=== PATIENT | male | born 1965 | race African-American/Black ===

== ENCOUNTER 2016-10-10 21:21 | Inpatient (IN) | payer BC, OTHER ==
--- NOTE | ~2016-10-10 | OP ---
Record Of Operation [facility] [address] [place]. [address] NAME: ADAMA RAO : 61 STATUS : ADM IN [facility]#: [id number] AGE: 51 ADM/REG DATE : 10/10/16 MR#: [id number] REPORT SERV DATE: 10/12/16 DICTATED BY: DEJAN HARDEN JR. DATE: 10/11/16 REPORT STATUS : Draft TRANSCRIBED BY: MODL DATE: 10/11/16 DATE OF PROCEDURE: 10/11/2016 PREOPERATIVE DIAGNOSES: Pneumonia, right parapneumonic effusion verus empyema, sepsis, EtOH abuse, cirrhosis, anemia of chronic disease, chronic kidney disease stage. POSTOPERATIVE DIAGNOSES: Pneumonia, right parapneumonic effusion versus empyema, sepsis, EtOH abuse, cirrhosis, anemia of chronic disease, chronic kidney disease stage. NAME OF OPERATION: Bronchoscopy, right thoracoscopy with complete decortication, intercostal nerve block. SURGEON: Dejan Harden M.D. RESIDENT SURGEON: Bob Purdy MD. VENDOR RELATIONSHIP MANAGER: Henrique Street. ANESTHESIA: General tracheal. FINDINGS: The patient noted to have a loculated complex parapneumonic effusion or empyema. The fluid was sent for cultures. The lung was trapped. We were able to get good reexpansion of all three lobes at the end of the case. The patient returned back to the ICU intubated. DETAILS OF OPERATION: After adequate general anesthesia, the patient was intubated. Bronchoscopy was noted to have no endobronchial lesions. There are mucous secretions and fibrin debris compatible with his pneumonia. This was suctioned out. He was then positioned in the left lateral decubitus position. The right chest was prepped and draped in routine sterile fashion. A small incision made overlying the lower intercostal space. Through the single trocar incision site, the above findings noted. The chest was entered where the fluid was evacuated. The loculations were broken up. The gelatinous material was suctioned out with a large bore open-ended suction. The pleural debris was then evacuated with multiple instruments and suction. We then had to remove the peel from the lung tissue. All the fissures were opened up. We were able get the lung reasonably decorticated such that had good re-expansion of all three lobes. Multiple liters of normal saline solution was used to irrigate the chest cavity. Two straight 32-Mohawk chest tubes were placed. The lung was reinflated. The single trocar sites were closed with running Vicryl sutures. The skin was closed with running monofilament suture. A Dermabond dressing was applied. The procedure was terminated at this point. The two previous chest tube incision sites from the outside referring facility were opened up and debrided. They were packed with iodoform gauze and closed with interrupted monofilament sutures. Sterile dressings were applied. The procedure was terminated. The patient tolerated the procedure well and taken back to recovery room in stable condition. Record Of Operation [facility] [address] [place]. [address] NAME: ADAMA RAO : 61 STATUS : ADM IN [facility]#: [id number] AGE: 51 ADM/REG DATE : 10/10/16 MR#: [id number] REPORT SERV DATE: 10/12/16 DICTATED BY: DEJAN HARDEN JR. DATE: 10/11/16 REPORT STATUS : Draft TRANSCRIBED BY: BEST DATE: 10/11/16 COOPER/BEST Dejan Harden Jr., M.D. / [id number] CC: Ambika Amos Jr., M.D.
--- NOTE | ~2016-10-10 | CN ---
Consultation Report [facility] [address] [place]. [address] NAME: ADAMA RAO : 61 STATUS : ADM IN [facility]#: [id number] AGE: 51 ADM/REG DATE : 10/10/16 MR#: [id number] REPORT SERV DATE: 10/21/16 DICTATED BY: ADÁN PLASCENCIA DATE: 10/21/16 REPORT STATUS : Draft TRANSCRIBED BY: MODL DATE: 10/21/16 INPATIENT CONSULT NOTE DATE OF CONSULTATION: 10/21/2016 REASON FOR CONSULTATION: Unable to take p.o. and requests for PEG tube placement. HISTORY OF PRESENT ILLNESS: Mr. Rao is an unfortunate 51-year-old male with no significant past medical history, who was admitted several weeks prior to this consultation with pneumonia and respiratory failure and ultimately underwent VATS and decortication for empyema on 10/11/2016 after repeated attempts at the chest tube placement and drainage that failed in the outside hospital. Since that time, the patient has been receiving Dobbhoff tube feeds as he has not been unable to feed himself. Prior to this at the outside hospital that he was transferred from, the patient was receiving TPN for nutrition. Discussion with the team taking care of Mr. Rao is felt that the patient is not going to be able to maintain nutrition on his own for some time into the future and have requested alternative means of enteral feeding. No prior history of abdominal surgeries. The patient has been tolerating Dobbhoff tube feeds well. REVIEW OF SYSTEMS: All systems were reviewed and symptoms were denied by the patient, although the patient does seem somewhat confused. PAST MEDICAL HISTORY: Includes polysubstance abuse. FAMILY HISTORY: No known family history of GI-related malignancies. SOCIAL HISTORY: The patient by report smokes and drinks heavily as an outpatient and also he has used marijuana. ALLERGIES: THE PATIENT HAS NO KNOWN DRUG ALLERGIES. OUTPATIENT MEDICATIONS: Include 1. Thiamine. 2. Multivitamin. 3. Lopressor. 4. Prinivil. 5. Folic acid. 6. Magnesium oxide. PHYSICAL EXAMINATION: VITAL SIGNS: Most recent vital signs include a temperature of 98.0, pulse of 119, blood pressure is 182/107, and the patient is saturating 94% nasal cannula oxygen. GENERAL INSPECTION: Reveals an elderly appearing male, lying in bed, in no Consultation Report [facility] [address] [facility] [place]. [address] NAME: ADAMA RAO : 61 STATUS : ADM IN [facility]#: [id number] AGE: 51 ADM/REG DATE : 10/10/16 MR#: [id number] REPORT SERV DATE: 10/21/16 DICTATED BY: ADÁN PLASCENCIA DATE: 10/21/16 REPORT STATUS : Draft TRANSCRIBED BY: MODL DATE: 10/21/16 apparent distress. HEENT: Head is normocephalic, atraumatic with normal inspection of the oral mucosa with moist mucous membranes. Sclerae are nonicteric. Pupils are equal and round. NECK: Supple without lymphadenopathy. HEART: Heart rate is tachycardic, but regular. LUNGS: Sounds are coarse to auscultation. ABDOMEN: Soft, nontender, nondistended with normoactive bowel sounds. EXTREMITIES: The patient has no cyanosis, clubbing, or edema. SKIN: No jaundice or rash. NEUROLOGIC: No gross motor deficits. The patient is alert, but does not necessarily appear to be oriented as he is not answering questions entirely appropriately with repeated references to getting him a "daiquiri." LABORATORY DATA: Most recent laboratory results include a CBC that shows a white count of 12.5, hemoglobin of 10.1, and a platelet count of 258,000. Basic metabolic panel shows sodium of 152, potassium of 3.2, chloride of 120, bicarb of 21, BUN of 23, creatinine of 1.4, and albumin of 2.0. No pertinent imaging to review. ASSESSMENT AND PLAN: Mr. Rao is an unfortunate 51-year-old male, admitted for pneumonia and for decortication for an empyema, who has had a difficult hospital course and has been shown not to be able to feed himself and needs nutritional support. The patient has currently been on Dobhoff tube feedings with no significant problems. Primary team has requested PEG tube placement. For comfort and continuing enteral feeds, we will proceed with the patient's enteral feedings with placement of a PEG tube. The patient should remain n.p.o. for the time being and should receive continued antibiotics in the periprocedural time frame. The patient is currently receiving Zosyn which should be adequate. Thank you very much for this interesting consult. Please call with any questions and concerns you may have. WMMaribeth/MODL Adán Plascencia MD / [id number] CC: Josiah Harden Jr., M.D. NO PCP
--- NOTE | ~2016-10-10 | HP ---
History And Physical [address] [place]. [address] NAME: ADAMA RAO : 61 STATUS : ADM IN [facility]#: [id number] AGE: 51 ADM/REG DATE : 10/10/16 MR#: [id number] REPORT SERV DATE: 10/12/16 DICTATED BY: DEJAN HARDEN JR. DATE: 10/12/16 REPORT STATUS : Draft TRANSCRIBED BY: MODL DATE: 10/12/16 DATE OF ADMISSION: 10/10/2016 REASON FOR ADMISSION: Loculated right pleural effusion. BRIEF HISTORY: This is a 51-year-old, male who denies any significant medical history prior to his admission at [facility], at which time he stated he had 2 weeks of the diarrhea with decreased oral intake. He also had a productive cough with green phlegm. He began having increasing shortness of breath and pleuritic right-sided pain, and presented to the Emergency Department where he was found on x-ray to have a right lower lobe pneumonia. CT of the chest was also performed which showed a fatty liver with significant right-sided pneumonia with a pleural effusion. Laboratory data was also obtained, which showed the patient to be in renal failure with a serum creatinine 4.28. He was treated medically there and started on antibiotics for sepsis and rehydrated. He underwent thoracentesis on 10/07/2016 with 500 mL of reddish pleural fluid removed. Followup imaging showed a loculated parapneumonic effusion. Chest tubes attempted without success. We were asked to transfer him for possible surgical decortication. PAST MEDICAL HISTORY: Significant for alcohol, tobacco, and marijuana abuse; anemia; COPD. The patient denies any other significant medical problems, but does not routinely go to physicians. HOME MEDICATIONS: None. ALLERGIES: NONE. SOCIAL HISTORY: The patient is single. He drinks at least 6 packs of beer daily as well as hard liquor. He smokes approximately 1/2 pack per day and has done so for 30 years. He also uses marijuana cigarettes daily. He is unemployed secondary to his poor vision. FAMILY HISTORY: Not significant for any early lung disease or cancers. Both his mother and father have heart disease, diabetes, and hypertension. PAST SURGICAL HISTORY: The patient denies any previous operations. REVIEW OF SYSTEMS: Significant for shortness of breath, pleuritic pain, anemia, vision loss. A complete 12- point review of systems in our system is negative except the above-mentioned pertinent positives in the history of present illness. PHYSICAL EXAMINATION: GENERAL: Sedated and somewhat lethargic, in no acute distress currently. HEAD, EARS, EYES, NOSE, AND THROAT: Normocephalic and atraumatic. Pupils are equal, round, and react to light. Ears, nose, and throat without drainage, lesions, or exudates noted. NECK: Supple. No lymphadenopathy, JVD, or bruits. Trachea midline. No obvious goiter. CHEST: Symmetrical bilateral air movement. No obvious chest wall deformity is noted. History And Physical [address] [address] [facility] [place]. [address] NAME: ADAMA RAO : 61 STATUS : ADM IN [facility]#: [id number] AGE: 51 ADM/REG DATE : 10/10/16 MR#: [id number] REPORT SERV DATE: 10/12/16 DICTATED BY: DEJAN HARDEN JR. DATE: 10/12/16 REPORT STATUS : Draft TRANSCRIBED BY: BEST DATE: 10/12/16 There is no axillary lymphadenopathy noted. CARDIOVASCULAR: Revealed regular rate and rhythm. S1, S2. No gallop, murmur, or rub. LUNGS: With scattered rhonchi bilaterally and decreased breath sounds. He is noted to have the use of accessory muscles. GASTROINTESTINAL: Abdomen is soft, mildly distended, with positive bowel sounds in all 4 quadrants. No hepatosplenomegaly noted. No abdominal aortic bruits or masses noted. : The patient has a Au catheter in place with concentrated yellow urine draining. Otherwise deferred. MUSCULOSKELETAL: Without obvious kyphosis or scoliosis noted. There are no significant bony abnormalities. There is normal range of motion in all 4 extremities. NEUROLOGIC: The patient answers all questions appropriately, but is very lethargic. There are no significant focal defects noted. SKIN: With generalized edema throughout. Normal turgor. There is no breakdown noted. PSYCH: Normal mood and sluggish affect. He does answer questions appropriately. HEMATOLOGIC/LYMPHATIC: Without any supraclavicular, axillary, or cervical lymphadenopathy noted. There is no petechiae or ecchymosis noted. EXTREMITIES: With 2+ edema and 2+ pulses bilaterally. DATA: Thoracentesis performed on 10/07/2016: 500 mL of bloody pleural fluid removed. V/Q scan dated 10/05/2016: Intermediate probability for pulmonary embolus. Echocardiogram dated 09/30/2016: Showing left trigger ejection fraction of 70%. There is no significant valvular disease noted. There is mild concentric left ventricular hypertrophy. Laboratory data dated 10/10/2016: Showing a white blood count 26.6, hemoglobin 8.9, hematocrit 25.3, platelet 208. Sodium 134, potassium 4.2, BUN 73, creatinine 1.77, glucose 191, albumin 2.5, alkaline phos 80, ALT 11, AST 24, total bilirubin 1.3. Lactic acid 0.9, magnesium 2.0, phosphorus 2.7. CT of the chest, abdomen, and pelvis without contrast: Showing a severe fatty liver. There was a large right lower lobe lobar pneumonia with effusion. There was no other significant lymphadenopathy noted. PROBLEM LIST: 1. Loculated right pleural effusion. 2. Sepsis. 3. Acute renal failure. 4. Anemia of chronic origin. 5. Hyponatremia. 6. Fatty liver. 7. Encephalopathy, multifactorial. 8. COPD. 9. Alcoholism. 10.Ongoing tobacco abuse. History And Physical [address] [address] NAME: ADAMA RAO : 61 STATUS : ADM IN [facility]#: [id number] AGE: 51 ADM/REG DATE : 10/10/16 MR#: [id number] REPORT SERV DATE: 10/12/16 DICTATED BY: DEJAN HARDEN JR. DATE: 10/12/16 REPORT STATUS : Draft TRANSCRIBED BY: MODL DATE: 10/12/16 IMPRESSION AND PLAN: A 51-year-old, black male, with sepsis secondary to a right-sided pneumonia with loculated right pleural effusion. They were unable to place a chest tube at [facility]. He remains tachypneic and tachycardic, and I think the only realistic option is to proceed with a right thoracoscopy and decortication. He is severely anemic and will need transfusions prior to surgery. There is no evidence of any blood loss, so I suspect that this is chronic in nature. He does have resolving acute renal failure, likely secondary to poor intake and sepsis. I discussed the risks, benefits, and expected outcomes of surgery with the patient and he is willing to proceed. Also, I discussed this with his mother by phone. We will plan to proceed with surgery in the a.m. He will likely remain on the ventilator for some period postoperatively as well. We will continue the TPN for nutrition currently, and start him postoperatively on tube feedings if he tolerates it. COOPER/BEST Dejan Harden Jr., M.D. / [id number] CC: Ambika Amos Jr., Jr., M.D.
--- NOTE | ~2016-10-10 | EGD ---
EGD REPORT [facility] [address] [place]. [address] NAME: ADAMA RAO : 61 STATUS : ADM IN PAT#: [id number] AGE: 51 ADM/REG DATE : 10/10/16 MR#: [id number] REPORT SERV DATE: 10/21/16 DICTATED BY: REGINALD KAISER DATE: 10/21/16 REPORT STATUS : Draft TRANSCRIBED BY: [employer] DATE: 10/21/16 Endoscopy Center Patient Name: Adama Rao Date of : 1965 Attending MD: REGINALD KAISER, Procedure Date No Time: 10/21/2016 Procedure: Upper GI endoscopy Indications: Place PEG-J because patient is unable to eat, Place PEG-J due to impaired swallowing Medicines: Monitored Anesthesia Care Complications: No immediate complications. Estimated blood loss: None. Procedure: Pre-Anesthesia Assessment: - ASA Grade Assessment: IV - A patient with severe systemic disease that is a constant threat to life. After obtaining informed consent, the endoscope was passed under direct vision. Throughout the procedure, the patient's blood pressure, pulse, and oxygen saturations were monitored continuously. The GIF [id number] was introduced through the mouth, and advanced to the second part of duodenum. The upper GI endoscopy was accomplished without difficulty. The patient tolerated the procedure well. Findings: The esophagus was normal. The cardia and gastric fundus were normal on retroflexion. The stomach was normal. The examined duodenum was normal. The patient was placed in the supine position for PEG placement. The stomach was insufflated to appose gastric and abdominal lester. A site was located in the body of the stomach with excellent transillumination and manual external pressure for placement. The abdominal wall was marked and prepped in a sterile manner. The area was anesthetized with 2 mL of 1% lidocaine. The trocar needle was introduced through the abdominal wall and into the stomach under direct endoscopic view. A snare was introduced through the endoscope and opened in the gastric lumen. The guide wire was passed through the trocar and into the open snare. The snare was closed around the guide wire. The endoscope and snare were removed, pulling the wire out through the mouth. A skin incision was made at the site of needle insertion. The externally removable 24 Fr EndoVive Safety gastrostomy tube was lubricated. The G-tube was passed over the guide wire through the mouth, and into the stomach. The trocar needle was removed, and the gastrostomy tube was pulled out from the stomach through the skin. The guide wire was removed, and the external bumper attached to the gastrostomy tube. The EGD REPORT [place] [id number] [facility] [place]. [address] NAME: ADAMA RAO : 61 STATUS : ADM IN [facility]#: [id number] AGE: 51 ADM/REG DATE : 10/10/16 MR#: [id number] REPORT SERV DATE: 10/21/16 DICTATED BY: REGINALD KAISER DATE: 10/21/16 REPORT STATUS : Draft TRANSCRIBED BY: [employer] DATE: 10/21/16 feeding tube was then cut to an appropriate length. The final position of the gastrostomy tube was confirmed by relook endoscopy, and skin marking noted to be 3 cm at the external bumper. The final tension and compression of the abdominal wall by the PEG tube and external bumper were checked and revealed that the bumper was loose and lightly touching the skin. The feeding tube was capped, and the tube site was cleaned and dressed. Impression: - Normal esophagus. - Normal stomach. - Normal examined duodenum. - An externally removable PEG placement was successfully completed. Recommendation: - Continue present medications. - Return to previous diet. - Please follow the post-PEG recommendations including: may use PEG today for meds and water and may use PEG tomorrow for feedings. Procedure Code(s): --- Professional --- 91087, Esophagogastroduodenoscopy, flexible, transoral; with directed placement of percutaneous gastrostomy tube Diagnosis Code(s): --- Professional --- R63.3, Feeding difficulties Z43.1, Encounter for attention to gastrostomy R13.10, Dysphagia, unspecified CPT copyright 2013 [employer]. All rights reserved. The codes documented in this report are preliminary and upon bar host/hostess review may be revised to meet current compliance requirements. REGINALD JOB, 10/21/2016 4:26 PM Number of Addenda: 0 Note Initiated On: 10/21/2016 3:59 PM Scope Withdrawal Time 0 hours 0 minutes 0 seconds [address] [id number]
--- NOTE | ~2016-10-10 | CN ---
Consultation Report [facility] [address] [facility] [place]. [address] NAME: ADAMA RAO : 61 STATUS : ADM IN [facility]#: [id number] AGE: 51 ADM/REG DATE : 10/10/16 MR#: [id number] REPORT SERV DATE: 10/10/16 DICTATED BY: PENELOPE TORRES DATE: 10/10/16 REPORT STATUS : Draft TRANSCRIBED BY: MODL DATE: 10/10/16 CONSULTATION NOTE DATE OF CONSULTATION: 10/10/2016 REASON FOR CONSULTATION: Acute respiratory failure, empyema. CHIEF COMPLAINT: Unable to obtain due to the patient's current medical status. HISTORY OF PRESENT ILLNESS: Mr. Rao is a 51-year-old gentleman who was a transfer to our hospital from an outside hospital who was admitted on 09/30/2016, and he was noted at that time to have shortness of breath, right lower lobe pneumonia, acute kidney injury, sepsis, and positive troponin with thrombocytopenia. After reviewing the patient's records, it is noted that his pneumonia progressed, and he has developed an empyema, he has not been eating and has been started on TPN, he went into acute kidney injury, however, this is fortunately improving. His thrombocytopenia most likely from sepsis has also been improving. The patient has been treated for nicotine and alcohol withdrawal. He is currently on vancomycin and meropenem with a white blood cell count that is worsening. PAST MEDICAL HISTORY: Tobacco abuse, alcohol abuse, hypertension, recent history of acute kidney injury, COPD. HOME MEDICATIONS: Actually, I have reviewed the outside hospital medications and have placed those on the chart. ALLERGIES: NO KNOWN DRUG ALLERGIES. FAMILY HISTORY: Unable to obtain as no family is currently at the bedside. SOCIAL HISTORY: As noted above, the patient has a history of tobacco and alcohol use. REVIEW OF SYSTEMS: Unable to obtain due to the patient's current medical status. PHYSICAL EXAMINATION: VITAL SIGNS: Heart rate currently around 130, blood pressure currently around 140 systolic, respiratory rate around 25, oxygen saturation 100% on a non-rebreather. GENERAL: The patient is encephalopathic, he follows minimal commands, mainly squeezing to the upper extremity, and he does respond to painful stimuli, clearly seems encephalopathic. HEENT: Neck is mildly rigid but otherwise no cervical lymphadenopathy. PULMONARY: The patient has good inspiratory intake but has rapid shallow breathing, no crackles heard in the anterior lung aguilar with decreased breath sounds in the posterior and lateral lung aguilar. CARDIAC: Tachycardic, no murmurs. Consultation Report [address] [place] [place] [address] NAME: ADAMA RAO : 61 STATUS : ADM IN [facility]#: [id number] AGE: 51 ADM/REG DATE : 10/10/16 MR#: [id number] REPORT SERV DATE: 10/10/16 DICTATED BY: PENELOPE TORRES DATE: 10/10/16 REPORT STATUS : Draft TRANSCRIBED BY: MODL DATE: 10/10/16 ABDOMEN: Soft, nontender, nondistended. EXTREMITIES: Peripheral pulses noted, extremity is lukewarm, no lower extremity edema. LABORATORY EXAMINATION: Laboratory examination at the outside hospital shows white blood cell count at 29,000 which is increasing, hemoglobin 8.9, platelet count has stabilized around 200, creatinine is down to 1.77, which is better from the 4 plus that he was noted to have on admission at the outside hospital. Arterial blood gas done now shows a pH of 7.41, pCO2 of 35, pO2 of 116. Outside hospital CT scan shows worsening pneumonia, loculated effusion in the right lower lobe and right upper lobe. ASSESSMENT AND PLAN: Mr. Rao is a 51-year-old gentleman with a past medical history noted above, who presents to the intensive care unit for need of a decortication by CT surgery. 1. Sepsis, worsening pneumonia, empyema: The patient is to undergo a decortication by Dr. Harden in the morning, he is currently n.p.o.. At this moment in time, we will check basic labs and have a baseline chest x-ray. We will restart his vancomycin and meropenem, we will have pharmacy dose his vancomycin, since he has been on TPN, we will also start Diflucan and have Infectious Disease consult for further guidance. We will obtain blood cultures. 2. Encephalopathy: The patient is not hypercapnic, unclear if this is underlying septic encephalopathy, his platelet count and kidney function has actually improved which makes this more unlikely. He has already been treated for his withdrawals, ABG does not show that he is in an any acute hypercapnic respiratory failure. We will check ammonia. Otherwise, I am concerned of an underlying meningitis in this patient, and we will have Intervention Radiology attempt to get a lumbar puncture. 3. Hypertension: We will start clonidine, amlodipine back on board. 4. Chronic obstructive pulmonary disease: We will continue DuoNeb therapy. 5. Sinus tachycardia: We will give patient 1 L of fluid bolus. 6. Prophylaxis: The patient currently is being given proton pump inhibitor, we will give SCDs as he is going to get an LP. 7. FEN: The patient is currently n.p.o. 8. Goals of care: The patient was a do not intubate, however, this has been reversed, no family is at the bedside, currently patient is full code. CRITICAL CARE TIME: 45 minutes. Thank you much for this consultation and allowing us to participate in your patient's care, please call us with any further questions or concerns. We have left him un-intubated as he is currently protecting his airways but anticipate that he will be intubated in the morning for surgery. Consultation Report [address] [address] NAME: ADAMA RAO : 61 STATUS : ADM IN PAT#: [id number] AGE: 51 ADM/REG DATE : 10/10/16 MR#: [id number] REPORT SERV DATE: 10/10/16 DICTATED BY: PENELOPE TORRES DATE: 10/10/16 REPORT STATUS : Draft TRANSCRIBED BY: BEST DATE: 10/10/16 WALESKA/BEST Penelope Torres MD / [id number] CC: Josaih Harden Jr., M.D.
--- NOTE | ~2016-10-10 | CN ---
Consultation Report [facility] [address] [place]. [address] NAME: ADAMA RAO : 61 STATUS : ADM IN PAT#: [id number] AGE: 51 ADM/REG DATE : 10/10/16 MR#: [id number] REPORT SERV DATE: 10/11/16 DICTATED BY: ARDEN MELGOZA DATE: 10/11/16 REPORT STATUS : Draft TRANSCRIBED BY: MODL DATE: 10/11/16 INFECTIOUS DISEASE CONSULT DATE OF CONSULTATION: REASON FOR REFERRAL: Evaluation and treatment of severe pulmonary infection. HISTORY OF PRESENT ILLNESS: The patient is a 51-year-old male. 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 He was admitted there on 09/30/2016 complaining of four days of steadily increasing cough, shortness of breath, malaise that began acutely. He began to have pain in his right side. Imaging in the emergency room showed a right-sided lower lobe infiltrate. There was no effusion on a followup CT scan done at that time. He had an elevated white blood cell count, fever, acute renal insufficiency, and thrombocytopenia. He was started empirically on Levaquin and cefepime, but the imaging revealed progressive pneumonia over the course of the next week, even though his renal dysfunction and thrombocytopenia improved. He continued to have fevers. White blood cell count remained in the 20,000s, so last week the antibiotics were changed to vancomycin and meropenem, but he continued to show no improvement on imaging or leukocytosis. There was some confusion that was felt to be due to alcohol withdrawal. He was started on Librium for that. On followup imaging yesterday, he had complete consolidation of the right side of his chest and a loculated effusion, so he is being transferred here for evaluation by CT surgery and likely decortication. Cultures were taken of his blood at admission and again on 10/05/2016 and 10/06/2016, those were negative. No sputum was obtained. A thoracentesis was done on 10/07/2016, which I do not have the cell counts on, but cultures of that were negative per notes from [facility]. The patient is awake. He does have a flat affect, but answers questions appropriately. He is oriented. He states that he has not traveled outside of this area. He is not working now, lives at home with his mother, who is chronically ill with heart disease, and has not been around anyone else who has been ill. He has had no recent head trauma. He has not been around animals, essentially no unusual environmental exposures. PAST MEDICAL HISTORY: Either unknown or unremarkable otherwise. MEDICATIONS: As described above. ALLERGIES: HE HAS NO KNOWN ANTIMICROBIAL ALLERGIES. SOCIAL HISTORY: He, prior to admission, did smoke and drink heavily and has used marijuana, but denies any other drug usage. He is unemployed at present. FAMILY HISTORY: Noncontributory. Consultation Report [address] [place]. [address] NAME: ADAMA RAO : 61 STATUS : ADM IN [facility]#: [id number] AGE: 51 ADM/REG DATE : 10/10/16 MR#: [id number] REPORT SERV DATE: 10/11/16 DICTATED BY: ARDEN MELGOZA DATE: 10/11/16 REPORT STATUS : Draft TRANSCRIBED BY: BEST DATE: 10/11/16 PHYSICAL EXAMINATION: GENERAL: Ill-appearing adult male, does answer questions appropriately, though has a flat affect as stated. VITAL SIGNS: His temperature here at present 99.7, it was 102.2 at arrival, present pulse of 104, respirations 28, blood pressure 138/83, his weight is 70 kg. HEENT: Sclerae are clear. He has dry mucous membranes. Chapped lips, but no oropharyngeal lesions. NECK: Otherwise, neck is supple without meningeal signs. LUNGS: Decreased breath sounds throughout the right side with heavy crackles on the left. HEART: Regular rate and rhythm. ABDOMEN: Soft, nontender. Positive bowel sounds. No masses palpated. No hepatosplenomegaly. EXTREMITIES: Without clubbing, cyanosis, or edema. No swollen, red, or hot joints. No skin lesions or rashes. He has a PICC line in the right upper extremity without warmth, tenderness, or redness associated with it. LABORATORY DATA: His white blood cell count here at presentation was 24.7, it was 23 this morning with a hematocrit of 20.9, platelets 218. Differential shows 91 segs and 1% bands. His BUN and creatinine 71 and 1.75. Liver function tests within normal limits except for an albumin of 1.6. Cultures here have been taken and are pending. IMPRESSION: Progressive pneumonia with associated empyema and sepsis. Some of the features of the sepsis such as renal dysfunction, thrombocytopenia have improved, but he continues to be febrile, have a marked leukocytosis, and severely abnormal changes on his chest imaging. At this point, I suspect this is some typical bacteria or combination of bacteria and could potentially even have been associated with aspiration events with his history of drinking. There are no environmental exposures or features of this that would suggest some unusual environmental agent at this time. He shows, I feel no signs of a central nervous system infection, but since he is able to process questions and answer them appropriately, he has flat affect I suspect, is more likely due to his overall illness that is still severe and alcohol withdrawal. RECOMMENDATIONS: 1. We will cancel lumbar puncture. 2. No isolation is necessary, if he had something that was potentially transmissible. He has been on antibiotics long enough to cover for that, so that I would not consider him contagious at this point. 3. We would continue with empiric vancomycin and meropenem for now. 4. Agree with the planned CT surgery procedure and we will review the cultures about when those are done. I feel that this is likely an infection that is covered by his antibiotics, but it is not going to improve until this persistent source of infection is surgically removed. Finally, I will follow the patient with you. I appreciate very much your consulting on this patient. Consultation Report [address] [place]. [address] NAME: ADAMA RAO : 61 STATUS : ADM IN [facility]#: [id number] AGE: 51 ADM/REG DATE : 10/10/16 MR#: [id number] REPORT SERV DATE: 10/11/16 DICTATED BY: ARDEN MELGOZA DATE: 10/11/16 REPORT STATUS : Draft TRANSCRIBED BY: BEST DATE: 10/11/16 DAVI Arden Melgoza M.D. / [id number] CC: Josiah Harden Jr., M.D.
--- NOTE | ~2016-10-10 | DS ---
Discharge Summary [facility] [address] [place]. [address] NAME: ADAMA RAO : 61 STATUS : DIS IN PAT#: [id number] AGE: 51 ADM/REG DATE : 10/10/16 MR#: [id number] REPORT SERV DATE: 11/18/16 DICTATED BY: DEJAN HARDEN JR. DATE: 11/17/16 REPORT STATUS : Draft TRANSCRIBED BY: BEST DATE: 11/17/16 Data Collection from hospitalization DISCHARGE DIAGNOSES: 1. Pneumonia. 2. Right parapneumonic effusion versus empyema. 3. Sepsis. 4. EtOH abuse. 5. Cirrhosis. 6. Anemia of chronic disease. 7. Chronic kidney disease. 8. Tobacco abuse. 9. Chronic obstructive pulmonary disease. 10.Marijuana abuse. 11.Anemia. CONSULTATIONS: Penelope Torres MD; Dario Robison M.D.; Adán Hwang M.D.; Fransisco Chase M.D. PROCEDURES PERFORMED: 1. Bronchoscopy, right thoracoscopy with complete decortication, and intercostal nerve block, 10/11/2016. 2. Upper GI endoscopy, 10/21/2016. MEDICATIONS: Norvasc 10 mg daily, Catapres 0.2 mg three times a day, Cardizem 60 mg every six hours, folic acid 1 mg daily, Mag-Ox 400 mg twice a day, Toprol-XL 150 mg daily, multivitamins with minerals one tablet daily, Habitrol 21 mg topically daily, Percocet 5/325 one to two tablets every four to six hours as needed, thiamine 100 mg daily. She was instructed not to continue lisinopril. CONDITION AT DISCHARGE: Stable. DISPOSITION: The patient was discharged to home on a regular diet with activities as instructed. He would follow up with Dr. Fransisco Pelaez, 12/09/2016. He would follow up with Dr. Dejan Johnson, 11/28/2016. He would follow up with Dr. Shakeel Duarte, 12/05/2016. HOSPITAL COURSE: This is a 51-year-old man, who denied any significant medical history prior to his admission at [facility], at which time, he said he had two weeks of diarrhea with decreased oral intake. He also had a productive cough with green phlegm. He began having increasing shortness of breath and pleuritic right-sided pain and presented to the emergency department where he was found on x-ray to have right lower lobe pneumonia. A CT scan of the chest showed a fatty liver with significant right-sided pneumonia with pleural effusion. Lab data revealed the patient to be in renal failure with serum creatinine 4.28. He was treated medically and started on antibiotics for sepsis and was rehydrated. He underwent a thoracentesis on 10/07/2016 with 500 mL of reddish pleural fluid removed. Followup imaging showed a loculated parapneumonic effusion. Chest tubes were attempted without success. We were asked to transfer him for possible surgical Discharge Summary [address] [place]. [address] NAME: ADAMA RAO : 61 STATUS : DIS IN PAT#: [id number] AGE: 51 ADM/REG DATE : 10/10/16 MR#: [id number] REPORT SERV DATE: 11/18/16 DICTATED BY: DEJAN HARDEN JR. DATE: 11/17/16 REPORT STATUS : Draft TRANSCRIBED BY: BEST DATE: 11/17/16 decortication. He was admitted to the hospital at this time for further evaluation and treatment. Upon admission, plans are being made to proceed with surgery. He was severely anemic and would need transfusions prior to surgery. There was no evidence of blood loss and it was suspected that this was chronic in nature. He does have resolving acute renal failure likely secondary to poor intake and sepsis. He would be started on tube feedings. Postoperatively, TPN therapy was continued. Currently, he was seen in consultation by Dr. Penelope Torres regarding acute respiratory failure and empyema. After reviewing the patient's records, it was noted that the pneumonia has progressed and that he had developed an empyema. He had not been eating and had been started on TPN. He had gotten into acute kidney injury, however, this was fortunately improving. His thrombocytopenia was felt most likely from sepsis and was also improving. He had been treated for nicotine and alcohol withdrawal. He is currently receiving vancomycin and meropenem. White count was 29,000. He was felt to have sepsis, worsening pneumonia, and empyema. Basic labs were going to be checked as well as the baseline chest x-ray. Vancomycin and meropenem would be restarted. The Pharmacy would dose his vancomycin since he had been on TPNs, Diflucan would be started as well. Blood cultures were obtained. The patient does have encephalopathy. He was being treated for his withdrawals. Ammonia level was going to be checked. There was some concern of underlying meningitis. It was felt that he may need a lumbar puncture. Clonidine and amlodipine were continued. DuoNeb therapy would be provided. He was given a 1 L fluid bolus. He was being given proton pump inhibitor. SCDs were going to be placed. The following day, he was transfused. He was seen by Dr. Dario Robison. He had been asked to evaluate the patient regarding severe pulmonary infection. Blood cultures had been obtained and that were negative. No sputum had been obtained. His lumbar puncture was canceled. He was felt to have progressive pneumonia with associated empyema and sepsis. He had severely abnormal changes on his chest imaging. At this point, it was suspected that this was some atypical bacteria or combination of bacteria and could potentially even have been associated with aspiration events with his history of drinking. There were no environmental exposures with features that would suggest some unusual environmental agent at this time. He was not showing any signs of central nervous system infection, but since he was able to process questions and answer them appropriately, he did have a flat affect which was suspected more likely due to his overall illness that was still severe and alcohol withdrawal. No isolation was felt to be necessary. Empiric vancomycin and meropenem were continued. The patient was taken to the operating room where he underwent the above-mentioned procedure. He tolerated this well. There were no complications. He was also seen by Dr. Fransisco Chase. He was felt to have a resolving acute kidney injury. Renal function had improved. Supportive care was continued. We were hoping to avoid hemodialysis. White count was 23 TPN therapy was being provided. On postop day #1, he was still intubated and sedated. His temperature had decreased, white count had decreased to 19.4. Antibiotics were continued. He was on TPN for nutrition. Renal function was stable. He had no dyspnea. Ventilator weaning was going to be performed. He did have some hypertension overnight. He did fall on extubation attempt. His wounds were clean, dry, and intact. C. difficile study was negative. White blood cell count continued to decrease. Meropenem was changed to Zosyn. Blood cultures were negative. Vancomycin was continued. On 10/16/2016, he was making slow progress. He seemed to be more alert. On the 10/17/2016, his renal function had worsened. Sodium level had improved. Creatinine level was 1.49. Librium Discharge Summary [facility] [place]. [address] NAME: ADAMA RAO : 61 STATUS : DIS IN PAT#: [id number] AGE: 51 ADM/REG DATE : 10/10/16 MR#: [id number] REPORT SERV DATE: 11/18/16 DICTATED BY: DEJAN HARDEN JR. DATE: 11/17/16 REPORT STATUS : Draft TRANSCRIBED BY: BEST DATE: 11/17/16 dosing was decreased. He had good urine output. Urine output remained adequate. On 10/19/2016, his chest tube was going to be removed. He was extubated. He was evaluated by Occupational and Physical Therapy. Antibiotics were continued. He had been on TPN at [facility]. He had been on Dobbhoff tube here. He was unable to tolerate oral intake. His Dobbhoff was going to be replaced. He was seen by Dr. Adán Hwang on 10/21/2016. There was a request for PEG tube placement. It was felt that the patient was not going to be able to maintain nutrition on his own for sometime in the future and it was requested that an alternative means of antral feedings be performed. He was tolerating Dobbhoff tube feedings well. Creatinine level was 1.4. White count was 12.5. The patient was taken to the endoscopic suite by Dr. Shakeel Duarte where he underwent the above-mentioned upper GI endoscopy and PEG tube placement. He had a normal esophagus and stomach. There was a normal examined duodenum. An externally removable PEG placement was performed successfully. On the 10/23/2016, he became slightly more interactive. He was afebrile. Sodium level was 152, creatinine was 1.6. White count was 13. He did develop some discomfort at the PEG tube site. He was making slow progress. Vancomycin and Zosyn were continued. He denies acute complaints he did have some increased atelectasis and pleural fluid on chest x-ray. Blood pressure control was okay. Sodium level was within normal limits. His wounds remained clean, dry, and intact. He had no pulmonary complaints. Clonidine was increased as his blood pressure increased. Tube feedings were at goal and he was tolerating this well. Speech/Language Pathology performed a bedside swallow study. There were no overt signs or symptoms of aspiration. Procalcitonin level was decreasing on vancomycin. The PICC line dressing was changed. On the 10/27/2016, we were going to advance his diet and continued feedings. Until we could seizure he to maintain nutrition aggressive physical therapy would be provided. He had some increased work of breathing and elevated blood pressure that afternoon, his tube had been feedings. His BP increased chest x-ray showed stable right lung consolidation. There was no pneumothorax. Tube feedings were held for several hours. He remained afebrile. He was becoming more conversant. He does have severe deconditioning. He had no new issues. Au catheter was removed. Antibiotics were stopped on the 10/31/2016. He was voiding without difficulty. He continued to slowly progress he was encouraged to ambulate. O2 was being weaned. The PEG tube was removed. He had good oral intake. We encouraged him to increase his activity. He seemed to be getting stronger. On 11/05/2016, he was alert and cooperative. Over the next couple of days, he continued to progress. Discharge planning was performed. On 11/07/2016, O2 saturation was 98% on room air. He had adequate urine output. His wounds were clean, dry, and intact. Discharge instructions were given. Due to his improved and stable condition, he was discharged to home with the above-stated instructions. Information collected by: Laura Hein I submit the above information as my discharge summary. DEB/BEST Discharge Summary [address] [address] NAME: ADAMA RAO : 61 STATUS : DIS IN PAT#: [id number] AGE: 51 ADM/REG DATE : 10/10/16 MR#: [id number] REPORT SERV DATE: 11/18/16 DICTATED BY: DEJAN HARDEN JR. DATE: 11/17/16 REPORT STATUS : Draft TRANSCRIBED BY: BEST DATE: 11/17/16 Dejan Harden Jr., M.D. / [id number] CC: Ambika Amos Jr., MD Nathan Chamberlain, M.D. Mark Anderson, M.D.
[2016-10-10 22:26] LABS: ALLENS TEST Pos; BE (BASE EXCESS) -2.6 MEQ/L (0 +/- 2.5); CARBOXYHEMOGLOBIN 0.3 % (0-3); DEVICE NRB; HCO3 (ACTUAL BICARBONATE) 21.7 MEQ/L (23-27); INSTRUMENT SERIAL # 11843; METHEMOGLOBIN 0.7 % (0-3); O2 CONTENT 14.1 VOL% (18-24); OPERATOR ID 16469; PCO2 (CO2 TENSION) 35 MMHG (35-45); PO2 (O2 TENSION) 166 MMHG (79-93); SAMPLE Arterial; pH 7.41 (7.37-7.43)
[2016-10-11 00:36] LABS: HEMATOCRIT 22.4 % (40.0-51.0); HEMOGLOBIN 7.5 g/dL (13.6-17.8); MEAN CORPUS HGB CONC 33.5 g/dL (32.0-36.0); MEAN CORPUSCULAR HEMOGLOB 30.9 pg (26.0-34.0); MEAN CORPUSCULAR VOLUME 92.2 fL (80-100); MEAN PLATELET VOLUME 10.8 fL (9.2-13.0); PLATELET COUNT 219 10/3/uL (150-400); RBC DISTRIBUTION WIDTH 18.1 % (12.0-16.0); RED CELL COUNT 2.43 10/6/uL (4.7-6.1); WHITE BLOOD CELLS 24.7 10/3/uL (4.5-10.5)
[2016-10-11 00:37] LABS: MANUAL DIFF YES %
[2016-10-11 01:02] LABS: ANISOCYTOSIS 1+ (5-10/OIF) (0-5/OIF); LYMPHOCYTES 2 %; LYMPHOCYTES ABSOLUTE (CALC) 0.49 10/3/uL (0.67-4.30); MONOCYTES 4 %; MONOCYTES ABSOLUTE (CALC) 0.99 10/3/uL (0.21-1.20); NEUTROPHILS ABSOLUTE (CALC) 23.22 10/3/uL (2.02-8.40); PLATELET ESTIMATE ADQ (ADEQUATE); SEGMENTED NEUTROPHIL (0) 94 %; TOTAL NUCLEATED CELLS 100
[2016-10-11 01:02] LABS: A/G RATIO 0.3 (0.7-1.9); ALBUMIN 1.6 G/DL (3.5-5.0); ALKALINE PHOSPHATASE 86 U/L (45-117); BUN (BLOOD UREA NITROGEN) 70 MG/DL (6-23); CALCIUM, SERUM 8.2 MG/DL (8.5-10.4); CHLORIDE, SERUM 110 MMOL/L (96-112); CO2 (CARBON DIOXIDE) 21 MMOL/L (24-34); CREATININE 1.82 MG/DL (0.70-1.30); GFR AFRICAN AMERICAN 48 ML/MIN (>=60); GFR NON AFRICAN AMERICAN 41 ML/MIN (>=60); GLOBULIN 5.5 G/DL (2.5-4.1); GLUCOSE, SERUM 140 MG/DL (60-99); PHOSPHORUS, SERUM 3.9 MG/DL (2.5-4.5); POTASSIUM, SERUM 4.5 MMOL/L (3.5-5.3); SGOT(AST) 26 U/L (5-40); SGPT(ALT) 17 U/L (5-65); SODIUM, SERUM 141 MMOL/L (135-148); TOTAL BILIRUBIN 1.2 MG/DL (0-1.2); TOTAL PROTEIN 7.1 G/DL (6.0-8.5); TROPONIN I <0.02 NG/ML (<0.05); ULTRASENSITIVE TSH 0.372 MCIU/ML (0.358-3.740)
[2016-10-11 04:13] LABS: MEAN CORPUSCULAR HEMOGLOB 30.7 pg (26.0-34.0); MEAN CORPUSCULAR VOLUME 92.9 fL (80-100); MEAN PLATELET VOLUME 11.7 fL (9.2-13.0); PLATELET COUNT 218 10/3/uL (150-400); RBC DISTRIBUTION WIDTH 18.5 % (12.0-16.0); RED CELL COUNT 2.25 10/6/uL (4.7-6.1)
[2016-10-11 04:14] LABS: HEMATOCRIT 20.9 % (40.0-51.0); HEMOGLOBIN 6.9 g/dL (13.6-17.8); MANUAL DIFF YES %
[2016-10-11 04:22] LABS: INTERNATIONAL NORMAL RATI 1.3 UNITS (-); PARTIAL THROMBO TIME 31.4 SEC (22.5-37.2); PROTIME (NOT ORD) 15.9 SEC (12.0-14.5)
[2016-10-11 04:28] LABS: BUN (BLOOD UREA NITROGEN) 71 MG/DL (6-23); CALCIUM, SERUM 8.3 MG/DL (8.5-10.4); CHLORIDE, SERUM 115 MMOL/L (96-112); CO2 (CARBON DIOXIDE) 21 MMOL/L (24-34); CREATININE 1.75 MG/DL (0.70-1.30); GFR AFRICAN AMERICAN 50 ML/MIN (>=60); GFR NON AFRICAN AMERICAN 43 ML/MIN (>=60); GLUCOSE, SERUM 119 MG/DL (60-99); POTASSIUM, SERUM 4.6 MMOL/L (3.5-5.3); SODIUM, SERUM 145 MMOL/L (135-148)
[2016-10-11 05:09] LABS: BAND NEUTROPHILS 1 %; EOSINOPHILS 1 %; EOSINOPHILS ABSOLUTE (CALC) 0.23 10/3/uL (0.0-0.53); LYMPHOCYTES 3 %; LYMPHOCYTES ABSOLUTE (CALC) 0.69 10/3/uL (0.67-4.30); MONOCYTES 4 %; MONOCYTES ABSOLUTE (CALC) 0.92 10/3/uL (0.21-1.20); NEUTROPHILS ABSOLUTE (CALC) 21.16 10/3/uL (2.02-8.40); PLATELET ESTIMATE ADQ (ADEQUATE); SEGMENTED NEUTROPHIL (0) 91 %; TOTAL NUCLEATED CELLS 100
[2016-10-11 05:10] LABS: ANISOCYTOSIS 1+ (5-10/OIF) (0-5/OIF)
[2016-10-11 05:28] LABS: PHOSPHORUS, SERUM 4.2 MG/DL (2.5-4.5); PREALBUMIN 5.6 MG/DL (17.0-43.0); TRIGLYCERIDE 169 MG/DL (< 150)
[2016-10-11 16:41] LABS: HEMATOCRIT 28.3 % (40.0-51.0); HEMOGLOBIN 9.7 g/dL (13.6-17.8)
[2016-10-11 20:12] LABS: BE (BASE EXCESS) -9.5 MEQ/L (0 +/- 2.5); CARBOXYHEMOGLOBIN 0.2 % (0-3); HCO3 (ACTUAL BICARBONATE) 20.6 MEQ/L (23-27); HEMOBLOGIN CONTENT 11.5 G/DL (14-18); INSTRUMENT SERIAL # 11843; METHEMOGLOBIN 0.7 % (0-3); MODE CMV; O2 CONTENT 16.1 VOL% (18-24); OPERATOR ID 16469; PCO2 (CO2 TENSION) 67 MMHG (35-45); PO2 (O2 TENSION) 172 MMHG (79-93); SAMPLE Arterial; TIDAL VOLUME 500 ML
[2016-10-11 20:53] LABS: BE (BASE EXCESS) -5.5 MEQ/L (0 +/- 2.5); CARBOXYHEMOGLOBIN 0.2 % (0-3); HCO3 (ACTUAL BICARBONATE) 19.4 MEQ/L (23-27); HEMOBLOGIN CONTENT 10.5 G/DL (14-18); INSTRUMENT SERIAL # 11843; METHEMOGLOBIN 0.6 % (0-3); MODE CMV; O2 CONTENT 13.9 VOL% (18-24); OPERATOR ID 16469; PCO2 (CO2 TENSION) 35 MMHG (35-45); PO2 (O2 TENSION) 77 MMHG (79-93); SAMPLE Arterial; TIDAL VOLUME 750 ML; pH 7.36 (7.37-7.43)
[2016-10-11 23:41] LABS: HEMATOCRIT 28.4 % (40.0-51.0); HEMOGLOBIN 9.5 g/dL (13.6-17.8); MEAN CORPUS HGB CONC 33.5 g/dL (32.0-36.0); MEAN CORPUSCULAR HEMOGLOB 29.7 pg (26.0-34.0); MEAN PLATELET VOLUME 10.6 fL (9.2-13.0); PLATELET COUNT 166 10/3/uL (150-400); RBC DISTRIBUTION WIDTH 16.9 % (12.0-16.0); WHITE BLOOD CELLS 21.4 10/3/uL (4.5-10.5)
[2016-10-11 23:44] LABS: MANUAL DIFF YES %; MEAN CORPUSCULAR VOLUME 88.8 fL (80-100)
[2016-10-11 23:56] LABS: BUN (BLOOD UREA NITROGEN) 70 MG/DL (6-23); CALCIUM, SERUM 7.8 MG/DL (8.5-10.4); CHLORIDE, SERUM 115 MMOL/L (96-112); CO2 (CARBON DIOXIDE) 20 MMOL/L (24-34); CREATININE 1.79 MG/DL (0.70-1.30); GFR AFRICAN AMERICAN 49 ML/MIN (>=60); GFR NON AFRICAN AMERICAN 42 ML/MIN (>=60); POTASSIUM, SERUM 5.4 MMOL/L (3.5-5.3); SODIUM, SERUM 145 MMOL/L (135-148)
[2016-10-11 23:58] LABS: GLUCOSE, SERUM 171 MG/DL (60-99)
[2016-10-12 00:20] LABS: BAND NEUTROPHILS 4 %; LYMPHOCYTES 5 %; LYMPHOCYTES ABSOLUTE (CALC) 1.07 10/3/uL (0.67-4.30); MONOCYTES 5 %; MONOCYTES ABSOLUTE (CALC) 1.07 10/3/uL (0.21-1.20); NEUTROPHILS ABSOLUTE (CALC) 19.26 10/3/uL (2.02-8.40); PLATELET ESTIMATE ADQ (ADEQUATE); RBC MORPHOLOGY NORM (NORMAL); SEGMENTED NEUTROPHIL (0) 86 %; TOTAL NUCLEATED CELLS 100
[2016-10-12 03:28] LABS: BE (BASE EXCESS) -6.8 MEQ/L (0 +/- 2.5); CARBOXYHEMOGLOBIN 0.3 % (0-3); HEMOBLOGIN CONTENT 10.4 G/DL (14-18); INSTRUMENT SERIAL # 11843; METHEMOGLOBIN 0.5 % (0-3); MODE CMV; O2 CONTENT 14.2 VOL% (18-24); OPERATOR ID 16469; PCO2 (CO2 TENSION) 29 MMHG (35-45); PO2 (O2 TENSION) 100 MMHG (79-93); SAMPLE Arterial; TIDAL VOLUME 750 ML; pH 7.39 (7.37-7.43)
[2016-10-12 04:19] LABS: HEMATOCRIT 28.1 % (40.0-51.0); HEMOGLOBIN 9.5 g/dL (13.6-17.8); MANUAL DIFF YES %; MEAN CORPUS HGB CONC 33.8 g/dL (32.0-36.0); MEAN CORPUSCULAR HEMOGLOB 30.6 pg (26.0-34.0); MEAN CORPUSCULAR VOLUME 90.6 fL (80-100); MEAN PLATELET VOLUME 11.1 fL (9.2-13.0); PLATELET COUNT 159 10/3/uL (150-400); RBC DISTRIBUTION WIDTH 17.1 % (12.0-16.0); WHITE BLOOD CELLS 19.4 10/3/uL (4.5-10.5)
[2016-10-12 04:39] LABS: ALBUMIN 1.6 G/DL (3.5-5.0); BUN (BLOOD UREA NITROGEN) 68 MG/DL (6-23); CALCIUM, SERUM 7.8 MG/DL (8.5-10.4); CHLORIDE, SERUM 115 MMOL/L (96-112); CO2 (CARBON DIOXIDE) 18 MMOL/L (24-34); CREATININE 1.79 MG/DL (0.70-1.30); GFR AFRICAN AMERICAN 49 ML/MIN (>=60); GFR NON AFRICAN AMERICAN 42 ML/MIN (>=60); SGOT(AST) 33 U/L (5-40); SGPT(ALT) 15 U/L (5-65); SODIUM, SERUM 144 MMOL/L (135-148); TOTAL BILIRUBIN 0.8 MG/DL (0-1.2); TOTAL PROTEIN 5.9 G/DL (6.0-8.5)
[2016-10-12 04:55] LABS: A/G RATIO 0.4 (0.7-1.9); ALKALINE PHOSPHATASE 67 U/L (45-117); GLOBULIN 4.3 G/DL (2.5-4.1); GLUCOSE, SERUM 237 MG/DL (60-99)
[2016-10-12 05:07] LABS: ANISOCYTOSIS 1+ (5-10/OIF) (0-5/OIF); BAND NEUTROPHILS 4 %; LYMPHOCYTES 2 %; LYMPHOCYTES ABSOLUTE (CALC) 0.39 10/3/uL (0.67-4.30); MONOCYTES 6 %; MONOCYTES ABSOLUTE (CALC) 1.16 10/3/uL (0.21-1.20); NEUTROPHILS ABSOLUTE (CALC) 17.85 10/3/uL (2.02-8.40); PLATELET ESTIMATE ADQ (ADEQUATE); SEGMENTED NEUTROPHIL (0) 88 %; TOTAL NUCLEATED CELLS 100
[2016-10-12 12:44] LABS: PHOSPHORUS, SERUM 4.5 MG/DL (2.5-4.5)
[2016-10-13 04:17] LABS: A/G RATIO 0.3 (0.7-1.9); ALBUMIN 1.6 G/DL (3.5-5.0); CALCIUM, SERUM 8.2 MG/DL (8.5-10.4); CHLORIDE, SERUM 116 MMOL/L (96-112); CREATININE 1.41 MG/DL (0.70-1.30); GFR AFRICAN AMERICAN 65 ML/MIN (>=60); GFR NON AFRICAN AMERICAN 56 ML/MIN (>=60); GLOBULIN 4.8 G/DL (2.5-4.1); GLUCOSE, SERUM 196 MG/DL (60-99); SGOT(AST) 42 U/L (5-40); SGPT(ALT) 31 U/L (5-65); SODIUM, SERUM 148 MMOL/L (135-148); TOTAL BILIRUBIN 0.6 MG/DL (0-1.2); TOTAL PROTEIN 6.4 G/DL (6.0-8.5)
[2016-10-13 04:18] LABS: ALKALINE PHOSPHATASE 85 U/L (45-117); BUN (BLOOD UREA NITROGEN) 62 MG/DL (6-23); CO2 (CARBON DIOXIDE) 24 MMOL/L (24-34); PHOSPHORUS, SERUM 3.4 MG/DL (2.5-4.5); POTASSIUM, SERUM 3.8 MMOL/L (3.5-5.3)
[2016-10-13 12:33] LABS: BASOPHILS 0.2 %; BASOPHILS ABSOLUTE 0.03 10/3/uL (0.0-0.16); EOSINOPHILS 1.6 %; HEMATOCRIT 29.5 % (40.0-51.0); HEMOGLOBIN 9.8 g/dL (13.6-17.8); IMMATURE GRANULOCYTES 0.5 %; IMMATURE GRANULOCYTES ABSOLUTE 0.07 10/3/uL (0.0-0.11); LYMPHOCYTES 9.5 %; LYMPHOCYTES ABSOLUTE 1.22 10/3/uL (0.67-4.30); MEAN CORPUS HGB CONC 33.2 g/dL (32.0-36.0); MEAN CORPUSCULAR HEMOGLOB 30.2 pg (26.0-34.0); MEAN CORPUSCULAR VOLUME 90.8 fL (80-100); MEAN PLATELET VOLUME 11.8 fL (9.2-13.0); MONOCYTES 5.5 %; NEUTROPHILS 82.7 %; NEUTROPHILS ABSOLUTE 10.56 10/3/uL (2.02-8.40); PLATELET COUNT 203 10/3/uL (150-400); RBC DISTRIBUTION WIDTH 17.5 % (12.0-16.0); RED CELL COUNT 3.25 10/6/uL (4.7-6.1); WHITE BLOOD CELLS 12.8 10/3/uL (4.5-10.5)
[2016-10-13 12:35] LABS: MANUAL DIFF NO %
[2016-10-14 04:24] LABS: BASOPHILS 0.6 %; BASOPHILS ABSOLUTE 0.07 10/3/uL (0.0-0.16); EOSINOPHILS 0.9 %; HEMATOCRIT 28.7 % (40.0-51.0); HEMOGLOBIN 9.6 g/dL (13.6-17.8); IMMATURE GRANULOCYTES 0.4 %; IMMATURE GRANULOCYTES ABSOLUTE 0.04 10/3/uL (0.0-0.11); LYMPHOCYTES 18.3 %; LYMPHOCYTES ABSOLUTE 2.04 10/3/uL (0.67-4.30); MEAN CORPUS HGB CONC 33.4 g/dL (32.0-36.0); MEAN CORPUSCULAR HEMOGLOB 30.5 pg (26.0-34.0); MEAN CORPUSCULAR VOLUME 91.1 fL (80-100); MEAN PLATELET VOLUME 10.9 fL (9.2-13.0); MONOCYTES 7.4 %; MONOCYTES ABSOLUTE 0.83 10/3/uL (0.21-1.20); NEUTROPHILS 72.4 %; NEUTROPHILS ABSOLUTE 8.09 10/3/uL (2.02-8.40); PLATELET COUNT 194 10/3/uL (150-400); RBC DISTRIBUTION WIDTH 17.3 % (12.0-16.0); RED CELL COUNT 3.15 10/6/uL (4.7-6.1); WHITE BLOOD CELLS 11.2 10/3/uL (4.5-10.5)
[2016-10-14 04:26] LABS: BUN (BLOOD UREA NITROGEN) 59 MG/DL (6-23); CALCIUM, SERUM 8.1 MG/DL (8.5-10.4); CHLORIDE, SERUM 119 MMOL/L (96-112); CO2 (CARBON DIOXIDE) 25 MMOL/L (24-34); CREATININE 1.56 MG/DL (0.70-1.30); GFR AFRICAN AMERICAN 58 ML/MIN (>=60); GFR NON AFRICAN AMERICAN 50 ML/MIN (>=60); MANUAL DIFF NO %; POTASSIUM, SERUM 4.3 MMOL/L (3.5-5.3); SODIUM, SERUM 150 MMOL/L (135-148)
[2016-10-14 04:27] LABS: GLUCOSE, SERUM 101 MG/DL (60-99)
[2016-10-14 06:13] LABS: PROCALCITONIN 4.82 ng/mL (<0.5)
[2016-10-14 16:49] LABS: FREE T4 1.47 NG/DL (0.76-1.46); ULTRASENSITIVE TSH 1.47 MCIU/ML (0.358-3.740); VANCOMYCIN TROUGH 24.3 MCG/ML (10.0-20.0)
[2016-10-15 05:41] LABS: BUN (BLOOD UREA NITROGEN) 53 MG/DL (6-23); CALCIUM, SERUM 8.3 MG/DL (8.5-10.4); CHLORIDE, SERUM 121 MMOL/L (96-112); CO2 (CARBON DIOXIDE) 22 MMOL/L (24-34); CREATININE 1.55 MG/DL (0.70-1.30); FREE T4 1.46 NG/DL (0.76-1.46); GFR AFRICAN AMERICAN 58 ML/MIN (>=60); GFR NON AFRICAN AMERICAN 50 ML/MIN (>=60); GLUCOSE, SERUM 92 MG/DL (60-99); POTASSIUM, SERUM 4.6 MMOL/L (3.5-5.3); SODIUM, SERUM 151 MMOL/L (135-148)
[2016-10-15 06:20] LABS: BASOPHILS 0.5 %; BASOPHILS ABSOLUTE 0.05 10/3/uL (0.0-0.16); EOSINOPHILS 2.6 %; EOSINOPHILS ABSOLUTE 0.24 10/3/uL (0.0-0.53); HEMATOCRIT 29.4 % (40.0-51.0); HEMOGLOBIN 9.6 g/dL (13.6-17.8); IMMATURE GRANULOCYTES 0.3 %; IMMATURE GRANULOCYTES ABSOLUTE 0.03 10/3/uL (0.0-0.11); LYMPHOCYTES 14.9 %; LYMPHOCYTES ABSOLUTE 1.38 10/3/uL (0.67-4.30); MEAN CORPUS HGB CONC 32.7 g/dL (32.0-36.0); MEAN CORPUSCULAR HEMOGLOB 30.6 pg (26.0-34.0); MEAN CORPUSCULAR VOLUME 93.6 fL (80-100); MEAN PLATELET VOLUME 11.4 fL (9.2-13.0); MONOCYTES 6.1 %; MONOCYTES ABSOLUTE 0.57 10/3/uL (0.21-1.20); NEUTROPHILS 75.6 %; NEUTROPHILS ABSOLUTE 7.01 10/3/uL (2.02-8.40); PLATELET COUNT 195 10/3/uL (150-400); RBC DISTRIBUTION WIDTH 17.3 % (12.0-16.0); RED CELL COUNT 3.14 10/6/uL (4.7-6.1); WHITE BLOOD CELLS 9.3 10/3/uL (4.5-10.5)
[2016-10-15 06:21] LABS: MANUAL DIFF NO %
[2016-10-16 04:32] LABS: HEMATOCRIT 27.6 % (40.0-51.0); HEMOGLOBIN 9.1 g/dL (13.6-17.8); MANUAL DIFF YES %; MEAN CORPUSCULAR HEMOGLOB 30.2 pg (26.0-34.0); MEAN CORPUSCULAR VOLUME 91.7 fL (80-100); MEAN PLATELET VOLUME 11.4 fL (9.2-13.0); PLATELET COUNT 205 10/3/uL (150-400); RBC DISTRIBUTION WIDTH 16.9 % (12.0-16.0); RED CELL COUNT 3.01 10/6/uL (4.7-6.1); WHITE BLOOD CELLS 9.9 10/3/uL (4.5-10.5)
[2016-10-16 04:36] LABS: CHLORIDE, SERUM 113 MMOL/L (96-112); CO2 (CARBON DIOXIDE) 22 MMOL/L (24-34); CREATININE 1.66 MG/DL (0.70-1.30); GFR AFRICAN AMERICAN 54 ML/MIN (>=60); GFR NON AFRICAN AMERICAN 46 ML/MIN (>=60); GLUCOSE, SERUM 89 MG/DL (60-99); POTASSIUM, SERUM 4.1 MMOL/L (3.5-5.3); SODIUM, SERUM 146 MMOL/L (135-148)
[2016-10-16 04:37] LABS: BUN (BLOOD UREA NITROGEN) 48 MG/DL (6-23)
[2016-10-16 05:35] LABS: BAND NEUTROPHILS 9 %; BASOPHILS 1 %; EOSINOPHILS 4 %; LYMPHOCYTES 19 %; LYMPHOCYTES ABSOLUTE (CALC) 1.88 10/3/uL (0.67-4.30); MONOCYTES 7 %; MONOCYTES ABSOLUTE (CALC) 0.69 10/3/uL (0.21-1.20); NEUTROPHILS ABSOLUTE (CALC) 6.83 10/3/uL (2.02-8.40); PLATELET ESTIMATE ADQ (ADEQUATE); SEGMENTED NEUTROPHIL (0) 60 %; TOTAL NUCLEATED CELLS 100
[2016-10-16 05:36] LABS: RBC MORPHOLOGY NORM (NORMAL)
[2016-10-17 03:41] LABS: BASOPHILS 0.5 %; BASOPHILS ABSOLUTE 0.04 10/3/uL (0.0-0.16); EOSINOPHILS 3.9 %; EOSINOPHILS ABSOLUTE 0.29 10/3/uL (0.0-0.53); HEMATOCRIT 29.1 % (40.0-51.0); HEMOGLOBIN 9.6 g/dL (13.6-17.8); IMMATURE GRANULOCYTES 0.7 %; IMMATURE GRANULOCYTES ABSOLUTE 0.05 10/3/uL (0.0-0.11); LYMPHOCYTES 19.5 %; LYMPHOCYTES ABSOLUTE 1.45 10/3/uL (0.67-4.30); MEAN CORPUSCULAR HEMOGLOB 30.8 pg (26.0-34.0); MEAN CORPUSCULAR VOLUME 93.3 fL (80-100); MEAN PLATELET VOLUME 10.6 fL (9.2-13.0); MONOCYTES 3.8 %; MONOCYTES ABSOLUTE 0.28 10/3/uL (0.21-1.20); NEUTROPHILS 71.6 %; NEUTROPHILS ABSOLUTE 5.32 10/3/uL (2.02-8.40); PLATELET COUNT 179 10/3/uL (150-400); RBC DISTRIBUTION WIDTH 16.2 % (12.0-16.0); RED CELL COUNT 3.12 10/6/uL (4.7-6.1); WHITE BLOOD CELLS 7.4 10/3/uL (4.5-10.5)
[2016-10-17 03:43] LABS: MANUAL DIFF NO %
[2016-10-17 03:54] LABS: CALCIUM, SERUM 8.1 MG/DL (8.5-10.4); CHLORIDE, SERUM 113 MMOL/L (96-112); CO2 (CARBON DIOXIDE) 22 MMOL/L (24-34); CREATININE 1.49 MG/DL (0.70-1.30); GFR AFRICAN AMERICAN 61 ML/MIN (>=60); GFR NON AFRICAN AMERICAN 53 ML/MIN (>=60); POTASSIUM, SERUM 3.9 MMOL/L (3.5-5.3); SODIUM, SERUM 145 MMOL/L (135-148)
[2016-10-17 03:55] LABS: BUN (BLOOD UREA NITROGEN) 41 MG/DL (6-23); GLUCOSE, SERUM 117 MG/DL (60-99)
[2016-10-18 01:47] LABS: BASOPHILS 0.5 %; BASOPHILS ABSOLUTE 0.04 10/3/uL (0.0-0.16); EOSINOPHILS 3.9 %; EOSINOPHILS ABSOLUTE 0.31 10/3/uL (0.0-0.53); HEMATOCRIT 28.2 % (40.0-51.0); HEMOGLOBIN 9.4 g/dL (13.6-17.8); IMMATURE GRANULOCYTES 0.4 %; IMMATURE GRANULOCYTES ABSOLUTE 0.03 10/3/uL (0.0-0.11); LYMPHOCYTES 17.2 %; LYMPHOCYTES ABSOLUTE 1.38 10/3/uL (0.67-4.30); MEAN CORPUS HGB CONC 33.3 g/dL (32.0-36.0); MEAN CORPUSCULAR HEMOGLOB 30.9 pg (26.0-34.0); MEAN CORPUSCULAR VOLUME 92.8 fL (80-100); MEAN PLATELET VOLUME 10.9 fL (9.2-13.0); MONOCYTES 5.2 %; MONOCYTES ABSOLUTE 0.42 10/3/uL (0.21-1.20); NEUTROPHILS 72.8 %; NEUTROPHILS ABSOLUTE 5.83 10/3/uL (2.02-8.40); PLATELET COUNT 197 10/3/uL (150-400); RBC DISTRIBUTION WIDTH 15.7 % (12.0-16.0); RED CELL COUNT 3.04 10/6/uL (4.7-6.1)
[2016-10-18 01:48] LABS: MANUAL DIFF NO %
[2016-10-18 02:04] LABS: VANCOMYCIN TROUGH 19.9 MCG/ML (10.0-20.0)
[2016-10-18 07:20] LABS: A/G RATIO 0.3 (0.7-1.9); ALBUMIN 1.6 G/DL (3.5-5.0); CALCIUM, SERUM 8.2 MG/DL (8.5-10.4); CHLORIDE, SERUM 112 MMOL/L (96-112); CO2 (CARBON DIOXIDE) 20 MMOL/L (24-34); CREATININE 1.59 MG/DL (0.70-1.30); GFR AFRICAN AMERICAN 57 ML/MIN (>=60); GFR NON AFRICAN AMERICAN 49 ML/MIN (>=60); GLOBULIN 5.7 G/DL (2.5-4.1); SGOT(AST) 45 U/L (5-40); SGPT(ALT) 53 U/L (5-65); SODIUM, SERUM 145 MMOL/L (135-148); TOTAL BILIRUBIN 0.4 MG/DL (0-1.2); TOTAL PROTEIN 7.3 G/DL (6.0-8.5)
[2016-10-18 07:21] LABS: ALKALINE PHOSPHATASE 171 U/L (45-117); BUN (BLOOD UREA NITROGEN) 37 MG/DL (6-23); GLUCOSE, SERUM 87 MG/DL (60-99); PHOSPHORUS, SERUM 5.5 MG/DL (2.5-4.5)
[2016-10-18 10:48] LABS: BE (BASE EXCESS) -5.4 MEQ/L (0 +/- 2.5); CARBOXYHEMOGLOBIN 0.2 % (0-3); HCO3 (ACTUAL BICARBONATE) 18.2 MEQ/L (23-27); HEMOBLOGIN CONTENT 10.3 G/DL (14-18); INSTRUMENT SERIAL # 11843; METHEMOGLOBIN 0.5 % (0-3); PCO2 (CO2 TENSION) 29 MMHG (35-45); PO2 (O2 TENSION) 92 MMHG (79-93); pH 7.41 (7.37-7.43)
[2016-10-18 10:49] LABS: DEVICE NC; OPERATOR ID 19104; SAMPLE Arterial
[2016-10-18 14:24] LABS: ALLENS TEST Pos; BE (BASE EXCESS) -5.9 MEQ/L (0 +/- 2.5); CARBOXYHEMOGLOBIN 0.3 % (0-3); HCO3 (ACTUAL BICARBONATE) 17.6 MEQ/L (23-27); HEMOBLOGIN CONTENT 10.8 G/DL (14-18); INSTRUMENT SERIAL # 11843; METHEMOGLOBIN 0.3 % (0-3); O2 CONTENT 14.4 VOL% (18-24); OPERATOR ID 19104; PCO2 (CO2 TENSION) 28 MMHG (35-45); PO2 (O2 TENSION) 81 MMHG (79-93); SAMPLE Arterial; pH 7.41 (7.37-7.43)
[2016-10-18 15:37] LABS: MEAN CORPUS HGB CONC 32.3 g/dL (32.0-36.0); MEAN CORPUSCULAR HEMOGLOB 29.9 pg (26.0-34.0); MEAN CORPUSCULAR VOLUME 92.8 fL (80-100); MEAN PLATELET VOLUME 10.7 fL (9.2-13.0); PLATELET COUNT 211 10/3/uL (150-400); RBC DISTRIBUTION WIDTH 15.7 % (12.0-16.0); RED CELL COUNT 3.34 10/6/uL (4.7-6.1)
[2016-10-18 15:48] LABS: MANUAL DIFF YES %; WHITE BLOOD CELLS 11.4 10/3/uL (4.5-10.5)
[2016-10-18 15:50] LABS: ALBUMIN 1.8 G/DL (3.5-5.0); CALCIUM, SERUM 8.6 MG/DL (8.5-10.4); CHLORIDE, SERUM 112 MMOL/L (96-112); CO2 (CARBON DIOXIDE) 21 MMOL/L (24-34); CREATININE 1.62 MG/DL (0.70-1.30); GFR AFRICAN AMERICAN 55 ML/MIN (>=60); GFR NON AFRICAN AMERICAN 48 ML/MIN (>=60); GLUCOSE, SERUM 82 MG/DL (60-99); PHOSPHORUS, SERUM 4.7 MG/DL (2.5-4.5); POTASSIUM, SERUM 3.9 MMOL/L (3.5-5.3); SODIUM, SERUM 145 MMOL/L (135-148)
[2016-10-18 15:51] LABS: BUN (BLOOD UREA NITROGEN) 33 MG/DL (6-23)
[2016-10-18 16:03] LABS: BAND NEUTROPHILS 10 %; EOSINOPHILS 5 %; EOSINOPHILS ABSOLUTE (CALC) 0.57 10/3/uL (0.0-0.53); LYMPHOCYTES 9 %; LYMPHOCYTES ABSOLUTE (CALC) 1.03 10/3/uL (0.67-4.30); MONOCYTES 2 %; MONOCYTES ABSOLUTE (CALC) 0.23 10/3/uL (0.21-1.20); NEUTROPHILS ABSOLUTE (CALC) 9.58 10/3/uL (2.02-8.40); PLATELET ESTIMATE ADQ (ADEQUATE); SEGMENTED NEUTROPHIL (0) 74 %; TOTAL NUCLEATED CELLS 100
[2016-10-18 16:04] LABS: MICROCYTES 1+ (5-10/OIF) (0-5/OIF)
[2016-10-18 16:05] LABS: ANISOCYTOSIS 1+ (5-10/OIF) (0-5/OIF)
[2016-10-19 04:20] LABS: BASOPHILS 0.3 %; BASOPHILS ABSOLUTE 0.03 10/3/uL (0.0-0.16); EOSINOPHILS 2.1 %; EOSINOPHILS ABSOLUTE 0.21 10/3/uL (0.0-0.53); HEMATOCRIT 32.7 % (40.0-51.0); HEMOGLOBIN 10.7 g/dL (13.6-17.8); IMMATURE GRANULOCYTES 1.3 %; IMMATURE GRANULOCYTES ABSOLUTE 0.13 10/3/uL (0.0-0.11); LYMPHOCYTES 15.2 %; LYMPHOCYTES ABSOLUTE 1.53 10/3/uL (0.67-4.30); MEAN CORPUS HGB CONC 32.7 g/dL (32.0-36.0); MEAN CORPUSCULAR HEMOGLOB 30.6 pg (26.0-34.0); MEAN CORPUSCULAR VOLUME 93.4 fL (80-100); MEAN PLATELET VOLUME 11.6 fL (9.2-13.0); MONOCYTES 4.5 %; MONOCYTES ABSOLUTE 0.45 10/3/uL (0.21-1.20); NEUTROPHILS 76.6 %; NEUTROPHILS ABSOLUTE 7.73 10/3/uL (2.02-8.40); PLATELET COUNT 230 10/3/uL (150-400); RBC DISTRIBUTION WIDTH 15.9 % (12.0-16.0); WHITE BLOOD CELLS 10.1 10/3/uL (4.5-10.5)
[2016-10-19 04:24] LABS: MANUAL DIFF NO %
[2016-10-19 04:32] LABS: ALBUMIN 1.8 G/DL (3.5-5.0); BUN (BLOOD UREA NITROGEN) 30 MG/DL (6-23); CALCIUM, SERUM 9.1 MG/DL (8.5-10.4); CHLORIDE, SERUM 114 MMOL/L (96-112); CO2 (CARBON DIOXIDE) 19 MMOL/L (24-34); GFR AFRICAN AMERICAN 66 ML/MIN (>=60); GFR NON AFRICAN AMERICAN 57 ML/MIN (>=60); PHOSPHORUS, SERUM 4.1 MG/DL (2.5-4.5); POTASSIUM, SERUM 3.7 MMOL/L (3.5-5.3); SODIUM, SERUM 145 MMOL/L (135-148)
[2016-10-19 04:37] LABS: GLUCOSE, SERUM 100 MG/DL (60-99)
[2016-10-19] MEDS ORDERED: MULTIVIT/MIN PO (12:26)
[2016-10-19] MEDS ORDERED: B1100 PO (12:26)
[2016-10-19] MEDS ORDERED: LOP25 PO (12:26)
[2016-10-19] MEDS ORDERED: FOLIC PO (12:27)
[2016-10-19] MEDS ORDERED: LISINOPRIL40 MG PO (12:27)
[2016-10-19] MEDS ORDERED: MAGOX4 PO (12:27)
[2016-10-20 06:49] LABS: ALLENS TEST Pos; BE (BASE EXCESS) -2.6 MEQ/L (0 +/- 2.5); CARBOXYHEMOGLOBIN 0.3 % (0-3); DEVICE NC; HCO3 (ACTUAL BICARBONATE) 19.5 MEQ/L (23-27); HEMOBLOGIN CONTENT 11.8 G/DL (14-18); INSTRUMENT SERIAL # 35151; METHEMOGLOBIN 0.6 % (0-3); O2 CONTENT 15.4 VOL% (18-24); OPERATOR ID 23712; PCO2 (CO2 TENSION) 26 MMHG (35-45); PO2 (O2 TENSION) 68 MMHG (79-93); SAMPLE Arterial; pH 7.49 (7.37-7.43)
[2016-10-21 06:17] LABS: BASOPHILS 0.3 %; BASOPHILS ABSOLUTE 0.04 10/3/uL (0.0-0.16); EOSINOPHILS 4.7 %; EOSINOPHILS ABSOLUTE 0.59 10/3/uL (0.0-0.53); HEMATOCRIT 31.8 % (40.0-51.0); HEMOGLOBIN 10.1 g/dL (13.6-17.8); IMMATURE GRANULOCYTES 0.7 %; IMMATURE GRANULOCYTES ABSOLUTE 0.09 10/3/uL (0.0-0.11); LYMPHOCYTES 16.3 %; LYMPHOCYTES ABSOLUTE 2.03 10/3/uL (0.67-4.30); MEAN CORPUS HGB CONC 31.8 g/dL (32.0-36.0); MEAN CORPUSCULAR HEMOGLOB 29.5 pg (26.0-34.0); MEAN PLATELET VOLUME 11.5 fL (9.2-13.0); MONOCYTES 7.3 %; MONOCYTES ABSOLUTE 0.91 10/3/uL (0.21-1.20); NEUTROPHILS 70.7 %; NEUTROPHILS ABSOLUTE 8.79 10/3/uL (2.02-8.40); PLATELET COUNT 258 10/3/uL (150-400); RBC DISTRIBUTION WIDTH 15.9 % (12.0-16.0); RED CELL COUNT 3.42 10/6/uL (4.7-6.1); WHITE BLOOD CELLS 12.5 10/3/uL (4.5-10.5)
[2016-10-21 06:26] LABS: MANUAL DIFF NO %
[2016-10-21 06:30] LABS: CALCIUM, SERUM 9.1 MG/DL (8.5-10.4); CHLORIDE, SERUM 120 MMOL/L (96-112); CO2 (CARBON DIOXIDE) 21 MMOL/L (24-34); GFR AFRICAN AMERICAN 66 ML/MIN (>=60); GFR NON AFRICAN AMERICAN 57 ML/MIN (>=60); GLUCOSE, SERUM 93 MG/DL (60-99); PHOSPHORUS, SERUM 3.6 MG/DL (2.5-4.5); POTASSIUM, SERUM 3.2 MMOL/L (3.5-5.3)
[2016-10-21 06:31] LABS: BUN (BLOOD UREA NITROGEN) 23 MG/DL (6-23); SODIUM, SERUM 152 MMOL/L (135-148)
[2016-10-21 14:22] LABS: INTERNATIONAL NORMAL RATI 1.3 UNITS (-); PROTIME (NOT ORD) 16.1 SEC (12.0-14.5)
[2016-10-22 07:29] LABS: BUN (BLOOD UREA NITROGEN) 18 MG/DL (6-23); CALCIUM, SERUM 9.1 MG/DL (8.5-10.4); CHLORIDE, SERUM 121 MMOL/L (96-112); CO2 (CARBON DIOXIDE) 20 MMOL/L (24-34); CREATININE 1.44 MG/DL (0.70-1.30); GFR AFRICAN AMERICAN 64 ML/MIN (>=60); GFR NON AFRICAN AMERICAN 55 ML/MIN (>=60); GLUCOSE, SERUM 95 MG/DL (60-99); POTASSIUM, SERUM 3.4 MMOL/L (3.5-5.3); SODIUM, SERUM 152 MMOL/L (135-148)
[2016-10-23 08:00] LABS: BASOPHILS 0.3 %; BASOPHILS ABSOLUTE 0.04 10/3/uL (0.0-0.16); EOSINOPHILS 4.4 %; HEMATOCRIT 28.5 % (40.0-51.0); HEMOGLOBIN 9.2 g/dL (13.6-17.8); IMMATURE GRANULOCYTES 0.5 %; IMMATURE GRANULOCYTES ABSOLUTE 0.07 10/3/uL (0.0-0.11); LYMPHOCYTES 16.5 %; LYMPHOCYTES ABSOLUTE 2.23 10/3/uL (0.67-4.30); MANUAL DIFF NO %; MEAN CORPUS HGB CONC 32.3 g/dL (32.0-36.0); MEAN CORPUSCULAR HEMOGLOB 30.2 pg (26.0-34.0); MEAN CORPUSCULAR VOLUME 93.4 fL (80-100); MEAN PLATELET VOLUME 10.5 fL (9.2-13.0); MONOCYTES 4.5 %; MONOCYTES ABSOLUTE 0.61 10/3/uL (0.21-1.20); NEUTROPHILS 73.8 %; NEUTROPHILS ABSOLUTE 9.96 10/3/uL (2.02-8.40); PLATELET COUNT 252 10/3/uL (150-400); RED CELL COUNT 3.05 10/6/uL (4.7-6.1); WHITE BLOOD CELLS 13.5 10/3/uL (4.5-10.5)
[2016-10-23 08:16] LABS: BUN (BLOOD UREA NITROGEN) 16 MG/DL (6-23); CALCIUM, SERUM 8.7 MG/DL (8.5-10.4); CHLORIDE, SERUM 118 MMOL/L (96-112); CO2 (CARBON DIOXIDE) 22 MMOL/L (24-34); CREATININE 1.65 MG/DL (0.70-1.30); GFR AFRICAN AMERICAN 54 ML/MIN (>=60); GFR NON AFRICAN AMERICAN 47 ML/MIN (>=60); GLUCOSE, SERUM 102 MG/DL (60-99); POTASSIUM, SERUM 3.9 MMOL/L (3.5-5.3); SODIUM, SERUM 152 MMOL/L (135-148)
[2016-10-23 21:54] LABS: OSMOLALITY, URINE 392 MOSM/KG (50-1200)
[2016-10-23 21:56] LABS: SODIUM, URINE 130 MEQ/L
[2016-10-24 08:33] LABS: ALBUMIN 1.8 G/DL (3.5-5.0); BUN (BLOOD UREA NITROGEN) 18 MG/DL (6-23); CALCIUM, SERUM 8.3 MG/DL (8.5-10.4); CHLORIDE, SERUM 116 MMOL/L (96-112); CO2 (CARBON DIOXIDE) 22 MMOL/L (24-34); CREATININE 1.73 MG/DL (0.70-1.30); GFR AFRICAN AMERICAN 51 ML/MIN (>=60); GFR NON AFRICAN AMERICAN 44 ML/MIN (>=60); GLUCOSE, SERUM 111 MG/DL (60-99); PHOSPHORUS, SERUM 4.7 MG/DL (2.5-4.5); POTASSIUM, SERUM 3.8 MMOL/L (3.5-5.3); SODIUM, SERUM 148 MMOL/L (135-148)
[2016-10-25 04:20] LABS: HEMATOCRIT 27.2 % (40.0-51.0); HEMOGLOBIN 8.8 g/dL (13.6-17.8); MEAN CORPUS HGB CONC 32.4 g/dL (32.0-36.0); MEAN CORPUSCULAR HEMOGLOB 30.2 pg (26.0-34.0); MEAN CORPUSCULAR VOLUME 93.5 fL (80-100); MEAN PLATELET VOLUME 10.6 fL (9.2-13.0); PLATELET COUNT 282 10/3/uL (150-400); RBC DISTRIBUTION WIDTH 15.5 % (12.0-16.0); RED CELL COUNT 2.91 10/6/uL (4.7-6.1); WHITE BLOOD CELLS 15.9 10/3/uL (4.5-10.5)
[2016-10-25 04:21] LABS: MANUAL DIFF YES %
[2016-10-25 04:35] LABS: CALCIUM, SERUM 8.2 MG/DL (8.5-10.4); CHLORIDE, SERUM 114 MMOL/L (96-112); CO2 (CARBON DIOXIDE) 24 MMOL/L (24-34); CREATININE 1.88 MG/DL (0.70-1.30); GFR AFRICAN AMERICAN 46 ML/MIN (>=60); GFR NON AFRICAN AMERICAN 40 ML/MIN (>=60); GLUCOSE, SERUM 102 MG/DL (60-99); POTASSIUM, SERUM 4.4 MMOL/L (3.5-5.3); SODIUM, SERUM 145 MMOL/L (135-148)
[2016-10-25 04:36] LABS: BUN (BLOOD UREA NITROGEN) 25 MG/DL (6-23)
[2016-10-25 05:16] LABS: BAND NEUTROPHILS 4 %; EOSINOPHILS 4 %; EOSINOPHILS ABSOLUTE (CALC) 0.64 10/3/uL (0.0-0.53); IMMATURE GRANS ABSOLUTE (CALC) 0.16 10/3/uL (0.0-0.11); LYMPHOCYTES 11 %; LYMPHOCYTES ABSOLUTE (CALC) 1.75 10/3/uL (0.67-4.30); METAMYELOCYTES 1 %; MONOCYTES 7 %; MONOCYTES ABSOLUTE (CALC) 1.11 10/3/uL (0.21-1.20); NEUTROPHILS ABSOLUTE (CALC) 12.24 10/3/uL (2.02-8.40); SEGMENTED NEUTROPHIL (0) 73 %; TOTAL NUCLEATED CELLS 100
[2016-10-25 05:17] LABS: GIANT PLATELET OCC; PLATELET ESTIMATE ADQ (ADEQUATE); STOMATOCYTES 1+ (3-10/OIF) (0-2/OIF)
[2016-10-27 01:35] LABS: HEMATOCRIT 25.5 % (40.0-51.0); HEMOGLOBIN 8.4 g/dL (13.6-17.8); MEAN CORPUS HGB CONC 32.9 g/dL (32.0-36.0); MEAN CORPUSCULAR HEMOGLOB 30.5 pg (26.0-34.0); MEAN CORPUSCULAR VOLUME 92.7 fL (80-100); MEAN PLATELET VOLUME 10.5 fL (9.2-13.0); PLATELET COUNT 267 10/3/uL (150-400); RBC DISTRIBUTION WIDTH 15.3 % (12.0-16.0); RED CELL COUNT 2.75 10/6/uL (4.7-6.1); WHITE BLOOD CELLS 13.9 10/3/uL (4.5-10.5)
[2016-10-27 01:36] LABS: MANUAL DIFF YES %
[2016-10-27 01:52] LABS: A/G RATIO 0.4 (0.7-1.9); ALBUMIN 2.1 G/DL (3.5-5.0); BUN (BLOOD UREA NITROGEN) 28 MG/DL (6-23); CALCIUM, SERUM 8.2 MG/DL (8.5-10.4); CHLORIDE, SERUM 105 MMOL/L (96-112); CO2 (CARBON DIOXIDE) 24 MMOL/L (24-34); GFR AFRICAN AMERICAN 46 ML/MIN (>=60); GFR NON AFRICAN AMERICAN 39 ML/MIN (>=60); GLOBULIN 5.8 G/DL (2.5-4.1); GLUCOSE, SERUM 104 MG/DL (60-99); POTASSIUM, SERUM 4.4 MMOL/L (3.5-5.3); SGOT(AST) 37 U/L (5-40); SGPT(ALT) 42 U/L (5-65); TOTAL BILIRUBIN 0.8 MG/DL (0-1.2); TOTAL PROTEIN 7.9 G/DL (6.0-8.5); VANCOMYCIN TROUGH 18.7 MCG/ML (10.0-20.0)
[2016-10-27 01:57] LABS: ALKALINE PHOSPHATASE 132 U/L (45-117); SODIUM, SERUM 138 MMOL/L (135-148)
[2016-10-27 02:24] LABS: BAND NEUTROPHILS 3 %; BASOPHILS 1 %; BASOPHILS ABSOLUTE (CALC) 0.14 10/3/uL (0.0-0.16); EOSINOPHILS 1 %; EOSINOPHILS ABSOLUTE (CALC) 0.14 10/3/uL (0.0-0.53); GIANT PLATELET RARE; LYMPHOCYTES 15 %; LYMPHOCYTES ABSOLUTE (CALC) 2.09 10/3/uL (0.67-4.30); MONOCYTES 3 %; MONOCYTES ABSOLUTE (CALC) 0.42 10/3/uL (0.21-1.20); NEUTROPHILS ABSOLUTE (CALC) 11.12 10/3/uL (2.02-8.40); PLATELET ESTIMATE ADQ (ADEQUATE); RBC MORPHOLOGY NORM (NORMAL); SEGMENTED NEUTROPHIL (0) 77 %; TOTAL NUCLEATED CELLS 100
[2016-10-28 04:37] LABS: BUN (BLOOD UREA NITROGEN) 28 MG/DL (6-23); CALCIUM, SERUM 8.4 MG/DL (8.5-10.4); CHLORIDE, SERUM 103 MMOL/L (96-112); CO2 (CARBON DIOXIDE) 26 MMOL/L (24-34); CREATININE 2.02 MG/DL (0.70-1.30); GFR AFRICAN AMERICAN 42 ML/MIN (>=60); GFR NON AFRICAN AMERICAN 37 ML/MIN (>=60); POTASSIUM, SERUM 4.5 MMOL/L (3.5-5.3); SODIUM, SERUM 137 MMOL/L (135-148)
[2016-10-28 04:40] LABS: GLUCOSE, SERUM 141 MG/DL (60-99)
[2016-10-29 06:41] LABS: BUN (BLOOD UREA NITROGEN) 26 MG/DL (6-23); CALCIUM, SERUM 8.5 MG/DL (8.5-10.4); CHLORIDE, SERUM 103 MMOL/L (96-112); CO2 (CARBON DIOXIDE) 26 MMOL/L (24-34); CREATININE 2.02 MG/DL (0.70-1.30); GFR AFRICAN AMERICAN 42 ML/MIN (>=60); GFR NON AFRICAN AMERICAN 37 ML/MIN (>=60); POTASSIUM, SERUM 4.5 MMOL/L (3.5-5.3); PREALBUMIN 17.1 MG/DL (17.0-43.0); SODIUM, SERUM 137 MMOL/L (135-148)
[2016-10-29 06:42] LABS: GLUCOSE, SERUM 101 MG/DL (60-99)
[2016-11-01 05:07] LABS: BASOPHILS 0.4 %; BASOPHILS ABSOLUTE 0.04 10/3/uL (0.0-0.16); EOSINOPHILS 1.9 %; EOSINOPHILS ABSOLUTE 0.22 10/3/uL (0.0-0.53); HEMATOCRIT 23.7 % (40.0-51.0); HEMOGLOBIN 7.9 g/dL (13.6-17.8); IMMATURE GRANULOCYTES 0.1 %; IMMATURE GRANULOCYTES ABSOLUTE 0.01 10/3/uL (0.0-0.11); LYMPHOCYTES 19.8 %; LYMPHOCYTES ABSOLUTE 2.25 10/3/uL (0.67-4.30); MEAN CORPUS HGB CONC 33.3 g/dL (32.0-36.0); MEAN CORPUSCULAR HEMOGLOB 30.2 pg (26.0-34.0); MEAN CORPUSCULAR VOLUME 90.5 fL (80-100); MEAN PLATELET VOLUME 10.3 fL (9.2-13.0); MONOCYTES 7.2 %; MONOCYTES ABSOLUTE 0.82 10/3/uL (0.21-1.20); NEUTROPHILS 70.6 %; PLATELET COUNT 277 10/3/uL (150-400); RBC DISTRIBUTION WIDTH 14.5 % (12.0-16.0); RED CELL COUNT 2.62 10/6/uL (4.7-6.1); WHITE BLOOD CELLS 11.3 10/3/uL (4.5-10.5)
[2016-11-01 05:08] LABS: MANUAL DIFF NO %
[2016-11-01 05:19] LABS: CALCIUM, SERUM 9.3 MG/DL (8.5-10.4); CHLORIDE, SERUM 104 MMOL/L (96-112); CO2 (CARBON DIOXIDE) 24 MMOL/L (24-34); CREATININE 1.68 MG/DL (0.70-1.30); GFR AFRICAN AMERICAN 53 ML/MIN (>=60); GFR NON AFRICAN AMERICAN 46 ML/MIN (>=60); GLUCOSE, SERUM 98 MG/DL (60-99); SODIUM, SERUM 137 MMOL/L (135-148)
[2016-11-01 05:30] LABS: BUN (BLOOD UREA NITROGEN) 19 MG/DL (6-23)
[2016-11-03 05:58] LABS: CALCIUM, SERUM 9.2 MG/DL (8.5-10.4); CHLORIDE, SERUM 101 MMOL/L (96-112); CO2 (CARBON DIOXIDE) 25 MMOL/L (24-34); CREATININE 1.44 MG/DL (0.70-1.30); GFR AFRICAN AMERICAN 64 ML/MIN (>=60); GFR NON AFRICAN AMERICAN 55 ML/MIN (>=60); GLUCOSE, SERUM 101 MG/DL (60-99); POTASSIUM, SERUM 4.1 MMOL/L (3.5-5.3); SODIUM, SERUM 134 MMOL/L (135-148)
[2016-11-03 05:59] LABS: BUN (BLOOD UREA NITROGEN) 25 MG/DL (6-23)
[2016-11-07] MEDS ORDERED: NORV10 PO (09:43)
[2016-11-07] MEDS ORDERED: CARD60 PO (09:44)
[2016-11-07] MEDS ORDERED: TOPXL50 PO (09:45)
[2016-11-07] MEDS ORDERED: HABIT21 TOP (09:46)
[2016-11-07] MEDS ORDERED: CAT2 PO (09:47)
[2016-11-07] MEDS ORDERED: PCET PO (09:48)
== END 2016-11-07 13:31 | disposition home or self-care (01) | DRG 853 ==
LOC: CVICU 21:21 → 5NO 10-19 15:50
PROVIDERS: Internal Medicine Critical Care Medicine; Internal Medicine Gastroenterology; Internal Medicine Infectious Disease; Internal Medicine Pulmonary Disease; Nurse Practitioner Acute Care; Thoracic Surgery (Cardiothoracic Vascular Surgery)
PROC: 0BJ08ZZ Inspection of Tracheobronchial Tree, Via Natural or Artificial Opening Endoscopic (ICD-10-PCS; 2016-10-11)
PROC: 30233N1 Transfusion of Nonautologous Red Blood Cells into Peripheral Vein, Percutaneous Approach (ICD-10-PCS; 2016-10-11)
PROC: 0BDN4ZZ Extraction of Right Pleura, Percutaneous Endoscopic Approach (ICD-10-PCS; principal; 2016-10-11 15:15)
PROC: 3E0T3CZ (ICD-10-PCS; 2016-10-11 15:15)
PROC: 3E0336Z Introduction of Nutritional Substance into Peripheral Vein, Percutaneous Approach (ICD-10-PCS; 2016-10-12)
PROC: 0DH63UZ Insertion of Feeding Device into Stomach, Percutaneous Approach (ICD-10-PCS; 2016-10-21)
PROC: 3E0G76Z Introduction of Nutritional Substance into Upper GI, Via Natural or Artificial Opening (ICD-10-PCS; 2016-10-21)
DX: A41.9 Sepsis, unspecified organism (principal); J86.9 Pyothorax without fistula; J96.01 Acute respiratory failure with hypoxia; R65.21 Severe sepsis with septic shock; G93.41 Metabolic encephalopathy; E43 Unspecified severe protein-calorie malnutrition; J90 Pleural effusion, not elsewhere classified; J18.9 Pneumonia, unspecified organism; N17.9 Acute kidney failure, unspecified; E87.1 Hypo-osmolality and hyponatremia; F10.239 Alcohol dependence with withdrawal, unspecified; I10 Essential (primary) hypertension; J44.9 Chronic obstructive pulmonary disease, unspecified; F17.210 Nicotine dependence, cigarettes, uncomplicated; F12.10 Cannabis abuse, uncomplicated; K76.0 Fatty (change of) liver, not elsewhere classified; D69.6 Thrombocytopenia, unspecified; D64.89 Other specified anemias
CPT/HCPCS: 31720; 36415; 36600; 71010; 71020; 74000; 80048; 80053; 80069; 80202; 82140; 82330; 82805; 82962; 83605; 83615; 83735; 83935; 84100; 84132; 84134; 84145; 84300; 84439; 84443; 84478; 84484; 85014; 85018; 85025; 85049; 85610; 85730; 86850; 86900; 86901; 86920; 87015; 87040; 87070; 87075; 87102; 87103; 87116; 87205; 87493; 87493-59; 92610-GN; 93005; 94002; 94003; 94640; 94660; 94668; 94770; 96523; 97110-GO; 97110-GP; 97116-GP; 97162-GP; 97164-GP; 97166-GO; 97168-GO; 97530-GO; 97530-GP; A9270-GY; C1751; C1769; C9113; G0463; G8978-CL-GP; G8979-CJ-GP; J0360; J1205; J1450; J1940; J2185; J2250; J2370; J2543; J2795; J3010; J3370; P9016; P9045

== ENCOUNTER 2016-12-09 09:45 | Day surgery (SDC) | payer BC ==
--- NOTE | ~2016-12-09 | OP ---
Record Of Operation [facility] [address] [place]. [address] NAME: ADAMA RAO : 61 STATUS : REG [facility]#: [id number] AGE: 51 ADM/REG DATE : 12/09/16 MR#: [id number] REPORT SERV DATE: 12/09/16 DICTATED BY: SHAKEEL DUARTE DATE: 12/09/16 REPORT STATUS : Draft TRANSCRIBED BY: MODL DATE: 12/09/16 DATE OF PROCEDURE: PROCEDURE REPORT Mr. Rao is a 51-year-old man who presents for PEG tube removal. The patient is no longer using this. The PEG tube was placed in October. He requests that it be removed. The patient was noted to have a PEG tube that was clean and intact. It was grasped and removed without difficulty. The area was bandaged. The patient was given instructions and told to call us should he have continued drainage or any other problems related to this. GO/BEST Shakeel Duarte MD / [id number] CC: Shakeel Duarte MD
[~2016-12-09 09:45] MED LIST: B1100 PO; CARD60 PO; CAT2 PO; FOLIC PO; HABIT21 TOP; LISINOPRIL40 MG PO; LOP25 PO; MAGOX4 PO; MULTIVIT/MIN PO; NORV10 PO; PCET PO; TOPXL50 PO
== END 2016-12-09 23:59 | disposition home or self-care (01) ==
LOC: DMU 09:45
PROVIDERS: Internal Medicine Gastroenterology
PROC: 0DP0XUZ Removal of Feeding Device from Upper Intestinal Tract, External Approach (ICD-10-PCS; principal; 2016-12-09 13:00)
DX: Z43.1 Encounter for attention to gastrostomy (principal); Z79.899 Other long term (current) drug therapy; Z79.891 Long term (current) use of opiate analgesic
CPT/HCPCS: G0463